=== PATIENT | male | born 1985 | race Caucasian/White ===

== ENCOUNTER 2017-02-18 18:18 | Emergency (ER) | payer OTHER ==
[~2017-02-18] VITALS: Ht 175.3 cm; Wt 95.3 kg
[2017-02-18 19:08] LABS: ABSOLUTE NEUTROPHILS 6.1 thou/uL (1.4-8.2); BASOPHILS 0.5 % (0.0-2.0); CALCIUM 9.1 mg/dL (8.5-10.1); CREATININE 1.1 mg/dL (0.7-1.3); HEMATOCRIT 42.9 % (42.0-52.0); HEMOGLOBIN 15.7 gm/dL (14.0-18.0); LYMPHOCYTES 21.1 % (24.0-44.0); MCH 32.6 pg (26.0-34.0); MCHC 36.5 g/dL (28.0-37.0); MCV 89.1 fL (80.0-100.0); MONOCYTES 7.7 % (1.0-8.0); PLATELET COUNT 211 thou/uL (150-400); POLYS 68.7 % (36.0-66.0); POTASSIUM 3.9 mmol/L (3.5-5.1); RBC 4.81 mil/uL (4.50-6.00); RDW 12.6 % (10.5-14.5); WBC 8.8 thou/uL (4.0-11.0)
[2017-02-18 19:09] LABS: MANUAL DIFF NO
[2017-02-18 19:12] LABS: ALBUMIN 3.8 g/dL (3.4-5.0); TOTAL BILIRUBIN 0.8 mg/dL (<0.1-1.0); TOTAL PROTEIN 7.3 g/dL (6.4-8.2)
[2017-02-18 20:23] LABS: URINE BILIRUBIN NEGATIVE (Negative); URINE BLOOD NEGATIVE (Negative); URINE COLOR YELLOW; URINE GLUCOSE-RANDOM* NEGATIVE (Negative); URINE KETONES NEGATIVE (Negative); URINE LEUKOCYTES-REFLEX NEGATIVE (Negative); URINE PROTEIN (DIPSTICK) NEGATIVE (Negative); URINE SPECIFIC GRAVITY 1.025 (1.003-1.035); URINE UROBILINOGEN 0.2 E.U./dl (0.2-1.0)
[2017-02-18] MEDS ORDERED: FLAGYL500 MG PO (20:54)
[2017-02-18] MEDS ORDERED: CIPROFLOXACIN500 M1 PO (20:54)
[2017-02-18 21:18] VITALS: BP 123/69
== END 2017-02-18 21:26 | disposition home or self-care (01) ==
LOC: ER 18:18
PROVIDERS: Emergency Medicine
DX: R19.7 Diarrhea, unspecified (principal); Z88.0 Allergy status to penicillin

== ENCOUNTER → 2019-08-07 | Outpatient (CLI) | payer OTHER ==
[~2019-08-07] MED LIST: CIPROFLOXACIN500 M1 PO; FLAGYL500 MG PO
--- NOTE | 2019-08-07 10:18 | 2DMMODE ---
[facility] [address] [place] [address] 2 D/M-MODE ECHOCARDIOGRAM Name: KATERYNA JUDGE Room #: REG CL [facility].#: [id number] Admission: 08/07/19 Attend Phys: Jovi Uriarte MD Discharge: Date of : 89 Report #: [id number] THIS REPORT FOR: //name// APPROVED REPORT Study performed: 08/07/2019 09:19:38 EXAM: Comprehensive 2D, Doppler, and color-flow Echocardiogram Patient Location: Out-Patient Status: routine BSA: 2.25 HR: 83 bpm BP: 136/82 mmHg Rhythm: NSR Other Information Study Quality: Adequate Indications Tachycardia 2D Dimensions RVDd: 36.90 mm IVSd: 11.66 (7-11mm) LVOT Diam: 20.07 (18-24mm) LVDd: 42.65 mm PWd: 10.95 (7-11mm) Ascending Ao: 27.79 (22-36mm) LVDs: 27.26 (25-40mm) Aortic Root: 29.60 mm Volumes Left Atrial Volume (Systole) Single Plane 4CH: 25.61 mL Single Plane 2CH: 20.19 mL LA ESV Index: 11.00 mL/m2 Aortic Valve AoV Peak Geovanni.: 1.13 m/s AO Peak Gr.: 5.11 mmHg LVOT Max P.60 mmHg LVOT Max V: 1.07 m/s MARCO A Vmax: 3.00 cm2 Mitral Valve E/A Ratio: 1.1 MV Decel. Time: 197.51 ms MV E Max Geovanni.: 0.62 m/s [facility] [address] [place] [address] 2 D/M-MODE ECHOCARDIOGRAM Name: KATERYNA JUDGE Room #: REG CL [facility]#: [id number] Admission: 08/07/19 Attend Phys: Jovi Uriarte MD Discharge: Date of : 89 Report #: [id number] MV A Geovanni.: 0.56 m/s MV PHT: 57.28 ms IVRT: 62.28 ms Pulmonary Valve PV Peak Geovanni.: 1.06 m/s PV Peak Gr.: 4.47 mmHg Pulmonary Vein P Vein S: 0.34 m/s P Vein A: 0.21 m/s P Vein D: 0.42 m/s P Vein A Dur.: 83.0 msec P Vein S/D Ratio: 0.81 Tricuspid Valve TR Peak Geovanni.: 2.11 m/s RAP Estimate: 5.00 mmHg TR Peak Gr.: 17.74 mmHg PA Pressure: 23.00 mmHg Left Ventricle The left ventricle is normal size. There is normal LV segmental wall motion. There is normal left ventricular wall thickness. The left ventricular systolic function is normal. LVEF is 60-65%. The left ventricular diastolic function is normal. Right Ventricle The right ventricle is normal size. The right ventricular systolic function is normal. Atria The left atrium size is normal. The right atrium size is normal. Aortic Valve The aortic valve is normal in structure. No aortic regurgitation is present. There is no aortic valvular stenosis. Mitral Valve The mitral valve is normal in structure. Trace mitral regurgitation. No evidence of mitral valve stenosis. Tricuspid Valve The tricuspid valve is normal in structure. Trace tricuspid regurgitation. Estimated PAP is 23mmHg. Pulmonic Valve The pulmonary valve is normal in structure. Trace pulmonic regurgitation. [facility] [place] [address] 2 D/M-MODE ECHOCARDIOGRAM Name: KATERYNA JUDGE Room #: REG CL [facility]#: [id number] Admission: 08/07/19 Attend Phys: Jovi Uriarte MD Discharge: Date of : 89 Report #: [id number] Great Vessels The aortic root is normal in size. The ascending aorta is normal in size. IVC is normal in size and collapses >50% with inspiration. Pericardium There is no pericardial effusion. <Conclusion> 1. Normal echocardiogram with Doppler. Ejection fraction 65% 2. Pulmonary artery pressure of 23mm Hg 3. No pericardial effusion <ELECTRONICALLY SIGNED> By: Ozzy Izquierdo MD, [facility] 08/07/19 1017 1017 1017 Ozzy Izquierdo MD, FACC /INF
--- NOTE | 2019-08-08 17:00 | EKG ---
[place] [address] [facility] [email or web address] [address] ELECTROCARDIOGRAM REPORT Name: KATERYNA JUDGE Room #: REG CLI [facility]#: [id number] Admission: 08/07/19 Attend Phys: Jovi Uriarte MD Discharge: Date of : 89 Report #: [id number] THIS REPORT FOR: //name// [facility] Test Date: 2019-08-07 Test Time: 10:12:04 Pat Name: KATERYNA JUDGE Department: Room: Gender: Public Health Analyst: ROGERIOChano L[place]ONO : 1985 Requested By: Jovi Uriarte Order Number: [id number] MD: Ozzy Izquierdo Measurements Intervals [place] Rate: 75 P: 22 MT: 168 QRS: 33 QRSD: 78 T: -10 QT: 350 QTc: 391 Interpretive Statements Sinus rhythm Borderline T abnormalities, inferior leads No previous ECG available for comparison Electronically Signed On 08-08-2019 17:00:42 [employer]ITTING [employer]PERVIS[employer] by Ozzy Izquierdo [email or web address] <ELECTRONICALLY SIGNED> By: Ozzy Izquierdo MD, [facility] 08/08/19 1700 1012 1012 Ozzy Izquierdo MD, FACC /EPI
== END ==
LOC: CV 09:12
DX: R00.0 Tachycardia, unspecified (principal)